=== PATIENT | female | born 1990 | race Caucasian/White ===

== ENCOUNTER 2020-07-17 04:42 | Emergency (ER) | payer OTHER ==
[~2020-07-17] VITALS: Ht 167.6 cm; Wt 89.0 kg
--- NOTE | 2020-07-17 05:20 | PHYS DOC ---
Past History Past Medical History: No Pertinent History (HOWARD KO DO) Adult General Chief Complaint Chief Complaint: NAUSEA/VOMITING/DIARRHEA HPI HPI Patient is a 29-year-old female who presents for nausea and vomit. Onset of symptoms was 6 hours ago. Nothing known makes better, ambulation and changes in body position make worse. Patient was reportedly getting ready for bed when she started feeling nauseous and had x1 episode of nonbilious nonbloody vomit. Patient reports trying to sleep but was tossing and turning all night and awake frequently due to nausea. Patient denies any pain. Timing of symptoms has been constant since onset. Associated symptoms include dizziness which patient states " feels like the room is spinning". She ate pepperoni pizza for lunch and a homemade hamburger for dinner, she believes the hamburger was fully cooked. She does not drink caffeine excessively, denies alcohol or illicit drug use. Denies fever, COVID-19 contact, URI-like symptoms, chest pain, shortness of breath, abdominal pain, UTI-like symptoms, or changes in bowel function (HOWARD KO DO) Review of Systems Review of Systems Fourteen body systems of review of systems have been reviewed. See HPI for pertinent positives and negative responses, other christy all other systems are negative, non-pertinent or non-contributory (HOWARD KO DO) Current Medications Current Medications Current Medications Medications (Trade) Dose Ordered Sig/Joe Start Time Stop Time Status Last Admin Dose Admin Ondansetron HCl (Zofran) 4 mg 1X ONCE 07/17/20 05:15 07/17/20 05:16 UNV Sodium Chloride 1,000 ml @ 1,000 mls/hr Q1H 07/17/20 05:15 07/17/20 06:14 UNV (HOWARD KO DO) Physical Exam Physical Exam Constitutional: Well developed, well nourished, no acute distress, non-toxic appearance. HENT: Normocephalic, atraumatic, bilateral external ears normal, oropharynx dry, no oral exudates, nose normal. Eyes: PERRLA, EOMI, conjunctiva normal, no discharge. Neck: Normal range of motion, no tenderness, supple, no stridor. Cardiovascular: Heart rate regular, sinus rhythm, no murmurs rubs or gallops Lungs & Thorax: Bilateral breath sounds clear to auscultation Abdomen: Bowel sounds normal, soft, no tenderness, no masses, no pulsatile mas ses. Nonsurgical abdomen, no peritoneal signs Skin: Warm, dry, no erythema, no rash. Back: No tenderness, no CVA tenderness. Extremities: No tenderness, no cyanosis, no clubbing, ROM intact, no edema. Neurologic: Alert and oriented X 3, grossly normal motor & sensory function, no focal deficits noted. Psychologic: Affect normal, judgement normal, mood normal. (HOWARD KO DO) EKG EKG [] (HOWARD KO DO) Radiology/Procedures Radiology/Procedures EKG ordered and interpreted by myself at 0530 hrs. as sinus rhythm at 88 bpm, unremarkable intervals, no axis deviation, no acute ischemic findings, no STEMI (HOWARD KO DO) Course & Med Decision Making Course & Med Decision Making ABCs obtained and non-concerning. IV access obtained Comprehensive history and physical exam obtained, subsequent diagnostic studies ordered Orthostatics obtained and positive, heart rate increased from 86 bpm to 107 bpm from laying to standing position (HOWARD KO DO) Course & Med Decision Making Labs unremarkable with no electrolyte abnormalities. Concern for abrupt onset of nausea and one episode of nonbloody nonbilious vomiting with burning epigastric abdominal pain and dizziness. Abdomen soft with no focal ttp. Patient's orthostatics were positive. Pt with no UTI sxs, U/a with bacteria, few squamous cells, 1-4 wbcs and no LE/nitrites. Will have pt repeat U/A with pmd. Patient now calm with nausea and vomiting well controlled. Will DC home with [facility]. Was educated to follow a liquid diet and slowly advance to solids, brat diet in between. Strict ED return precautions for severe abdominal pain, fever or dehydration. Encouraged urgent outpatient follow-up with PMD. Life- threatening processes were considered but are low suspicion at this time, given history and physical exam. Pt was educated on all prescription medications and adverse effects. All patient's questions were answered and pt was stable at time of discharge. Differential includes aortic dissection, aortic aneurysm, acute coronary syndrome, surgical abdomen (appendicitis, cholecystitis, ischemic bowel, strangulated hernia, etc), bowel obstruction or volvulus, bladder outlet obstruction, gastrointestinal bleeding, inflammatory bowel disease, peptic ulcer disease, sepsis, diverticular disease, ureterolithiasis, nephrolithiasis, ovarian torsion, ectopic , vaginal hemorrhage or infection I spoken with the patient and her caregivers. I explained the patient's condition, diagnoses and treatment plan based on the information available to me at this time. I have answered the patient and her caregiver's questions and addressed any concerns. The patient and her caregivers have a good understanding of patient's diagnosis, condition and treatment plan as can be expected at this point. Vital signs have been stable. Patient's condition is stable and appropriate for discharge from the emergency department. Patient will pursue further outpatient evaluation with primary care physician or other designated or consulting physician as outlined in the discharge instructions. The patient and/or caregivers are agreeable to this plan of care and follow-up instructions have been explained in detail. The patient and/or caregivers have received these instructions in written form and have expressed an understanding of the discharge instructions. The patient and/or caregivers are aware that any significant change of condition or worsening of symptoms should prompt immediate return to this or the closest emergency department or call to 911. (ADENIKE SANCHEZ DO) Dragon Disclaimer Dragon Disclaimer This electronic medical record was generated, in whole or in part, using a voice recognition dictation system. (HOWARD KO DO) Departure Departure: Impression: Primary Impression: Orthostatic lightheadedness Additional Impressions: Nausea & vomiting Dehydration Disposition: 01 HOME/RESIDENCE PRIOR TO ADM Condition: STABLE Referrals: PCP,UNKNOWN (PCP) Followup with your [facility] pcp in 2-5 days for re-evaluation and urinalysis Patient Instructions: Nausea and Vomiting, Orthostatic Hypotension Scripts Ondansetron Hcl (ZOFRAN) 4 Mg Tablet 1 TAB PO PRN Q6HRS PRN for NAUSEA, #15 TAB Prov: ADENIKE SANCHEZ DO 07/17/20 Justification of Admission: Justification of Admission: Justification of Admission Dx: N/A (HOWARD KO DO) Justification of Admission Dx: N/A (ADENIKE SANCHEZ DO) Problem Qualifiers HOWARD KO DO Jul 17, 2020 05:20 ADENIKE SANCHEZ DO Jul 17, 2020 07:58
[2020-07-17] MEDS ORDERED: SERT100T PO (05:30)
[2020-07-17] MEDS ORDERED: ONDANSETRON PF 4 MG/2 ML VIAL. IVP ONE (05:30)
[2020-07-17] MEDS ORDERED: IV NORMAL SALINE 1,000ML 1,000 ML IV SCH (05:30)
--- NOTE | 2020-07-17 05:32 | EKG ---
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
[2020-07-17 05:57] LABS: BASO % 1 % (0-3); EOS # 0.2 x10^3/uL (0.0-0.7); EOS % 3 % (0-3); HEMATOCRIT 38.4 % (36.0-47.0); HEMOGLOBIN 12.8 g/dL (12.0-15.5); LYMPH # 1.9 x10^3/uL (1.0-4.8); LYMPH % 33 % (24-48); MEAN CORPUSCULAR HEMOGLOBIN 32 pg (25-35); MEAN CORPUSCULAR HGB CONC 33 g/dL (31-37); MEAN CORPUSCULAR VOLUME 95 fL (79-100); MONO # 0.4 x10^3/uL (0.0-1.1); MONO % 6 % (0-9); NEUT # 3.3 x10^3uL (1.8-7.7); NEUT % 57 % (31-73); PLATELET COUNT 220 x10^3/uL (140-400); RED BLOOD COUNT 4.07 x10^6/uL (3.50-5.40); RED CELL DISTRIBUTION WIDTH 12.9 % (11.5-14.5); WHITE BLOOD COUNT 5.8 x10^3/uL (4.0-11.0)
[2020-07-17 06:05] LABS: CALCIUM 8.6 mg/dL (8.5-10.1); CREATININE 0.6 mg/dL (0.6-1.0); GFR 117.4; POTASSIUM 3.8 mmol/L (3.5-5.1)
[2020-07-17 06:10] LABS: ALBUMIN/GLOBULIN RATIO 1.1 (1.0-1.7); TOTAL BILIRUBIN 0.3 mg/dL (0.2-1.0); TOTAL PROTEIN 7.7 g/dL (6.4-8.2)
[2020-07-17 06:30] VITALS: BP 125/76
[2020-07-17 07:43] LABS: BILIRUBIN,URINE NEG (NEG); CLARITY,URINE HAZY; COLOR,URINE YELLOW; GLUCOSE,URINE NEG (NEG)
[2020-07-17 07:44] LABS: BACTERIA,URINE MOD /HPF (0-FEW); NITRITE,URINE NEG (NEG); SQUAMOUS EPITHELIAL CELL,UR FEW /LPF; UROBILINOGEN,URINE 0.2 mg/dL (0.2 mg/dL)
[2020-07-17] MEDS ORDERED: ONDA4TAB7 PO (07:55)
[2020-07-17 08:01] LABS: U PREG PATIENT NEGATIVE (NEG)
== END 2020-07-17 08:10 | disposition home or self-care (01) ==
LOC: ER 04:42
DX: E86.0 Dehydration (principal); R11.2 Nausea with vomiting, unspecified; R42 Dizziness and giddiness
CPT/HCPCS: 36415; 80053; 81001; 81025; 85025; 87086; 93005; 96361; 96374; 99284; J2405; J7030